=== PATIENT | male | born 1955 | race Caucasian/White ===

== ENCOUNTER 2017-08-17 13:24 | Emergency (ER) | payer MEDICARE ==
[~2017-08-17] VITALS: Ht 175.3 cm; Wt 91.0 kg
[2017-08-17 13:26] VITALS: BP 121/62; PULSE 89; RESP 16; TEMP 97.7; O2SAT 99
--- NOTE | 2017-08-17 17:28 | PD ---
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 Patient reports that he fell about a week ago. He denies pain in his legs. 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 No history of DVT or PE. No chest pain or dyspnea. States that he attempted to see an orthopedist as directed, however he was advised to come here for lab work. He states he has a primary care physician appointment tomorrow with a new primary care physician. He smokes about a pack of cigarettes daily. [facility] Social History Tobacco Use: Yes Allergies-Medications (Allergen,Severity, Reaction): Coded Allergies: No Known Allergies (Unverified , 08/17/17) Review of Systems Except as stated in HPI: all other systems reviewed are Neg Physical Exam Narrative GENERAL: Well-developed, well-nourished, comfortable, no apparent distress. SKIN: Focused skin assessment warm/dry. No rash. HEAD: Atraumatic. Normocephalic. EYES: Pupils equal and round. No scleral icterus. No injection or drainage. ENT: No nasal bleeding or discharge. Mucous membranes pink and moist. NECK: Trachea midline. No JVD. CARDIOVASCULAR: Regular rate and rhythm. RESPIRATORY: No accessory muscle use. Clear to auscultation. Breath sounds equal bilaterally. GASTROINTESTINAL: Abdomen soft, non-tender, nondistended. Hepatic and splenic margins not palpable. MUSCULOSKELETAL: No obvious deformities. No clubbing. No cyanosis. Mild bilateral lower extremity edema from foot to knee. Bilateral calves are supple and nontender. Bilateral feet are warm with normal capillary refill. NEUROLOGICAL: Awake and alert. No obvious cranial nerve deficits. Motor grossly within normal limits. Normal speech. PSYCHIATRIC: Appropriate mood and affect; insight and judgment normal. Data Data Last Documented VS Vital Signs Date Time Temp Pulse Resp B/P (MAP) Pulse Ox O2 Delivery O2 Flow Rate FiO2 08/17/17 19:01 08/17/17 17:28 84 16 98 Room Air 08/17/17 13:26 97.7 Orders Orders Complete Blood Count With Diff (08/17/17 17:22) Comprehensive Metabolic Panel (08/17/17 17:22) Prothrombin Time / Inr (Pt) (08/17/17 17:22) Act Partial Throm Time (Ptt) (08/17/17 17:22) Iv Access Insert/Monitor (08/17/17 17:22) Ecg Monitoring (08/17/17 17:22) Oximetry (08/17/17 17:22) Us Leg Venous Doppler Bilat (08/17/17 ) Ed Discharge Order (08/17/17 18:47) Labs Laboratory Tests Test 08/17/17 17:40 White Blood Count 8.8 TH/MM3 Red Blood Count 4.80 MIL/MM3 Hemoglobin 15.2 GM/DL Hematocrit 43.2 % Mean Corpuscular Volume 89.9 FL Mean Corpuscular Hemoglobin 31.6 PG Mean Corpuscular Hemoglobin Concent 35.2 % Red Cell Distribution Width 14.4 % Platelet Count 261 TH/MM3 Mean Platelet Volume 8.5 FL Neutrophils (%) (Auto) 78.6 % Lymphocytes (%) (Auto) 16.0 % Monocytes (%) (Auto) 4.7 % Eosinophils (%) (Auto) 0.4 % Basophils (%) (Auto) 0.3 % Neutrophils # (Auto) 6.9 TH/MM3 Lymphocytes # (Auto) 1.4 TH/MM3 Monocytes # (Auto) 0.4 TH/MM3 Eosinophils # (Auto) 0.0 TH/MM3 Basophils # (Auto) 0.0 TH/MM3 CBC Comment DIFF FINAL Differential Comment Prothrombin Time 10.7 SEC Prothromb Time International Ratio 1.1 RATIO Activated Partial Thromboplast Time 25.8 SEC Blood Urea Nitrogen 21 MG/DL Creatinine 1.15 MG/DL Random Glucose 109 MG/DL Total Protein 8.0 GM/DL Albumin 4.4 GM/DL Calcium Level 8.8 MG/DL Alkaline Phosphatase 78 U/L Aspartate Amino Transf (AST/SGOT) 38 U/L Alanine Aminotransferase (ALT/SGPT) 53 U/L Total Bilirubin 0.4 MG/DL Sodium Level 137 MEQ/L Potassium Level 4.2 MEQ/L Chloride Level 103 MEQ/L Carbon Dioxide Level 29.4 MEQ/L Anion Gap 5 MEQ/L Estimat Glomerular Filtration Rate 64 ML/MIN MDM Medical Decision Making Medical Screen Exam Complete: Yes Emergency Medical Condition: Yes Differential Diagnosis Bone infarcts, peripheral vascular disease, DVT Narrative Course Vital signs are within normal limits. CBC is unremarkable. CMP is essentially unremarkable. Bilateral lower extremity venous duplex: Negative for DVT. The patient was made aware of all findings. Again he presented to the emergency department requesting lab work to take with him to his primary care physician appointment tomorrow. He has a new primary care physician that he will be seeing for the first time tomorrow. He did have x-rays performed 3 days ago at an urgent care facility of his bilateral tib-fib which on the right reveals bone infarcts. He has no pain. He ambulated with a cane. No change in ambulation. Patient is stable for discharge home with further workup as an outpatient. I advised that he follow-up with an orthopedist this week as well as his primary care physician. He was advised on when to return to the emergency department. He verbalizes understanding and agreement with plan. Diagnosis Primary Impression: Bilateral lower extremity edema Referrals: Atif Sr MD 3 days Orthopedist Primary Care Physician 1 day Additional Instructions: Follow-up with your primary care physician tomorrow as scheduled. Follow-up with an orthopedist this week. Return to the emergency department for worsening symptoms or any other concerns. Disposition: 01 DISCHARGE HOME Condition: Stable Jose Francisco Melgoza MD Aug 17, 2017 17:28
[2017-08-17 18:07] LABS: AUTOMATED NEUTROPHIL # 6.9 TH/MM3 (1.8-7.7); BASOPHIL % 0.3 % (0.0-2.0); EOSINOPHIL % 0.4 % (0.0-4.0); HEMATOCRIT 43.2 % (39.0-51.0); HEMOGLOBIN 15.2 GM/DL (13.0-17.0); LYMPHOCYTE # 1.4 TH/MM3 (1.0-4.8); MEAN CELL VOLUME 89.9 FL (80.0-100.0); MEAN CORPUSCULAR HEMOGLOBIN 31.6 PG (27.0-34.0); MEAN CORPUSCULAR HGB CONC 35.2 % (32.0-36.0); MEAN PLATELET VOLUME 8.5 FL (7.0-11.0); MONO % 4.7 % (0.0-8.0); MONOCYTE # 0.4 TH/MM3 (0-0.9); NEUT % 78.6 % (16.0-70.0); PLATELET COUNT 261 TH/MM3 (150-450); RED CELL DISTRIBUTION WIDTH 14.4 % (11.6-17.2); WHITE BLOOD COUNT 8.8 TH/MM3 (4.0-11.0)
[2017-08-17 18:23] LABS: ALBUMIN 4.4 GM/DL (3.4-5.0); AST (GOT) 38 U/L (15-37); BICARBONATE 29.4 MEQ/L (21.0-32.0); BLOOD UREA NITROGEN 21 MG/DL (7-18); CALCIUM 8.8 MG/DL (8.5-10.1); CHLORIDE 103 MEQ/L (98-107); CREATININE 1.15 MG/DL (0.60-1.30); GLOMERULAR FILTRATION RATE 64 ML/MIN (>89); GLUCOSE,RANDOM 109 MG/DL (74-106); SODIUM (NA) 137 MEQ/L (136-145)
[2017-08-17 18:26] LABS: ALKALINE PHOSPHATASE 78 U/L (45-117); ALT (GPT) 53 U/L (12-78); INTERNATIONAL NORMALIZED RATIO 1.1 RATIO; PROTHROMBIN TIME - PATIENT 10.7 SEC (9.8-11.6); TOTAL BILIRUBIN ADULT 0.4 MG/DL (0.2-1.0)
--- NOTE | 2017-08-17 18:40 | RADRPT ---
EXAM DATE/TIME: 08/17/2017 18:14 [place] COMPARISON: No previous studies available for comparison. INDICATIONS : Bilateral leg swelling. MEDICAL HISTORY : Tobacco use. SURGICAL HISTORY : C2-C3 surgery. ENCOUNTER: Initial ACUITY: 3 weeks PAIN SCORE: 2/10 LOCATION: Bilateral legs. TECHNIQUE: Venous ultrasound of the left and right leg was performed from the inguinal ligament to the proximal calf. Real-time, color Doppler and spectral tracing, compression and augmentation techniques were us ed. FINDINGS: RIGHT LEG: There is normal compressibility of the deep venous system from the inguinal region to the proximal ca lf. No echogenic clot is seen in the lumen of the common femoral, femoral, popliteal, and posterior tibial veins. There is a normal response of the venous system to proximal and distal augmentation an d respiration. LEFT LEG: There is normal compressibility of the deep venous system from the inguinal region to the proximal ca lf. No echogenic clot is seen in the lumen of the common femoral, femoral, popliteal, and posterior tibial veins. There is a normal response of the venous system to proximal and distal augmentation an d respiration. CONCLUSION: No evidence of deep venous fibrosis within the lower extremities. Magno Delacruz MD on August 17, 2017 at 18:37 Board Certified Radiologist. This report was verified electronically.
== END 2017-08-17 19:03 | disposition home or self-care (01) ==
LOC: NEPD 13:24
DX: R60.0 Localized edema (principal); M79.89 Other specified soft tissue disorders; F17.210 Nicotine dependence, cigarettes, uncomplicated
CPT/HCPCS: 80053; 85025; 85610; 85730; 93970